=== PATIENT | female | born 1965 | race Caucasian/White ===

== ENCOUNTER 2023-03-10 11:11 | Outpatient (CLI) | payer MEDICAID | END 2023-03-10 23:59 | disposition home or self-care (01) | LOC: RAD 11:11 | PROVIDERS: ATTEND Family Medicine | DX: R94.01 Abnormal electroencephalogram [EEG] (principal); R41.89 Other symptoms and signs involving cognitive functions and awareness; M79.2 Neuralgia and neuritis, unspecified; R25.1 Tremor, unspecified | CPT/HCPCS: 95816 ==